=== PATIENT | male | born 1995 | race Caucasian/White ===

== ENCOUNTER 2021-09-03 09:14 | Emergency (ER) | payer MEDICAID ==
[~2021-09-03] VITALS: Ht 165.1 cm; Wt 77.1 kg
--- NOTE | 2021-09-03 09:18 | NUR ---
26 y/o male presents with right eye discomfort, states 1 month ago he got hit in his right eye on accident while helping a friend with shelving. he had bruising and swelling however he did not seek medical attention at the time.
--- NOTE | 2021-09-03 09:56 | NUR ---
patient returned from imaging
--- NOTE | 2021-09-03 11:39 | NUR ---
Patient discharged to home in stable condition. Written and verbal after care instructions given. Patient verbalizes understanding of instructions. Stressed follow up or return to ER for worsening s/s.
[2021-09-03 11:40] VITALS: BP 112/80
== END 2021-09-03 11:42 | disposition home or self-care (01) ==
LOC: ER 09:14
DX: S02.2XXA Fracture of nasal bones, initial encounter for closed fracture (principal); W22.8XXA Striking against or struck by other objects, initial encounter; Y92.89 Other specified places as the place of occurrence of the external cause; R51.9 Headache, unspecified; R11.2 Nausea with vomiting, unspecified
CPT/HCPCS: 70450; 70480; A4663

== ENCOUNTER 2021-11-28 12:46 | Emergency (ER) | payer MEDICAID ==
[~2021-11-28] VITALS: Ht 162.6 cm; Wt 77.1 kg
[2021-11-28] MEDS ORDERED: KETOROLAC TROMETHAMINE 15 MG INJ IM ONE (13:15)
[2021-11-28] MEDS ORDERED: ACETAMINOPHEN 325 MG TABLET PO ONE (13:15)
[2021-11-28] MEDS ORDERED: ACETAMINOPHEN 325 MG TABLET ONE (13:20)
[2021-11-28] MEDS ORDERED: KETOROLAC TROMETHAMINE 15 MG INJ ONE (13:22)
[2021-11-28] MEDS ORDERED: PRED20TA PO (13:34)
[2021-11-28] MEDS ORDERED: IBUP-1955 PO (13:34)
--- NOTE | 2021-11-28 13:51 | NUR ---
DCD instructions and prescriptions given to pt. who verbalized understanding. Patient left room [id number]. vitals stable, pain well controlled.
== END 2021-11-28 14:01 | disposition home or self-care (01) ==
LOC: ER 12:46
DX: M54.16 Radiculopathy, lumbar region (principal); G89.29 Other chronic pain; M54.50 Low back pain, unspecified
CPT/HCPCS: 99283; 72110; 96372; J1885; A4663